=== PATIENT | female | born 1995 | race American Indian/Alaskan Native ===

== ENCOUNTER 2021-11-24 22:48 | Emergency (ER) | payer SELFPAY ==
[2021-11-24 22:54] VITALS: BP 102/64
[2021-11-25 02:23] LABS: Bacteria,Urine 4+ /HPF (Negative); Bilirubin,Urine NEG (Negative); Blood,Urine SM (Negative); Color,Urine Yellow (Yellow); Mucus,Urine FEW /HPF; Protein,Urine <15 mg/dL mg/dL (Negative); Urobilinogen,Urine < 2.0 mg/dL (<2.0)
--- NOTE | 2021-11-25 07:13 | Emergency Department Report ---
ED Head Trauma HPI - General Chief complaint: Head Injury Stated complaint: LOSS CONSCIOUSNESS/SOB Source: patient Mode of arrival: Wheelchair Limitations: No Limitations - History of Present Illness Initial comments: Patient is a 26-year-old -[place] female with no past medical history who presents to the ED with complaint of acute onset headache and localized occipital scalp pain after she suffered a fall at a [employer] about 1 hour prior to arrival in the ED. Patient admits to having been drinking alcohol. Patient denies dizziness, seizures, syncope, loss of consciousness, nausea and vomiting, change in vision, neck pain, dental injuries, nosebleed, abdominal pain, chest pain or shortness of breath or low back pain, numbness and tingling or weakness of upper and lower extremities bilaterally. MD Complaint: head injury (Occipital scalp pain), fall, other (Head injury after fall) -: Sudden, hour(s) (1) Arrival Conditions: Negative: C-spine immobilization present, spinal board immobilization present Mechanism of Injury: mechanical fall Location: occipital Loss of Consciousness: no Previous Trauma to this Area: No Place: home Radiation: none Severity: moderate Severity scale (0 -10): 4 Quality: dull, aching Consistency: constant Provoking factors: none known, other (Alcohol abuse) Other Injuries: none Associated Symptoms: denies other symptoms. denies: confusion, amnesia, repetitive questioning, vision changes, nausea, vomiting, vertigo, syncope, numbness, weakness, tingling, neck pain - Related Data Allergies/Adverse reactions: Allergies Allergy/AdvReac Type Severity Reaction Status Date / Time No Known Allergies Allergy Verified 11/24/21 22:58 ED Review of Systems ROS: Stated complaint: LOSS CONSCIOUSNESS/SOB Other details as noted in HPI Constitutional: denies: chills, fever Eyes: denies: eye pain, eye discharge, vision change ENT: other ( pain). denies: ear pain, throat pain Respiratory: denies: cough, shortness of breath, wheezing Cardiovascular: denies: chest pain, palpitations Endocrine: no symptoms reported Gastrointestinal: denies: abdominal pain, nausea, diarrhea Genitourinary: denies: urgency, dysuria, discharge Musculoskeletal: denies: back pain, joint swelling, arthralgia Skin: denies: rash, lesions Neurological: headache. denies: weakness, paresthesias Psychiatric: denies: anxiety, depression Hematological/Lymphatic: denies: easy bleeding, easy bruising ED Physical Exam - General Limitations: No Limitations General appearance: alert, in no apparent distress - Head Head exam: Present: other (Palpable localized occipital scalp tenderness with mild swelling) - Eye Eye exam: Present: normal appearance, PERRL, EOMI Pupils: Present: normal accommodation - ENT ENT exam: Present: normal exam, normal orophraynx, mucous membranes moist, TM's normal bilaterally, normal external ear exam - Neck Neck exam: Present: normal inspection, full ROM. Absent: tenderness - Respiratory Respiratory exam: Present: normal lung sounds bilaterally. Absent: respiratory distress, wheezes, rhonchi, stridor, chest wall tenderness, accessory muscle use, decreased breath sounds - Cardiovascular Cardiovascular Exam: Present: regular rate, normal rhythm, normal heart sounds. Absent: systolic murmur, diastolic murmur, rubs, gallop - GI/Abdominal GI/Abdominal exam: Present: soft, normal bowel sounds. Absent: tenderness, guarding, rebound, hyperactive bowel sounds, hypoactive bowel sounds, organomegaly - Extremities Exam Extremities exam: Present: normal inspection, full ROM, normal capillary refill - Back Exam Back exam: Present: normal inspection, full ROM. Absent: tenderness, CVA tenderness (R), CVA tenderness (L), muscle spasm, paraspinal tenderness - Neurological Exam Neurological exam: Present: alert, oriented X3, CN II-XII intact, normal gait, reflexes normal - Psychiatric Psychiatric exam: Present: normal affect, normal mood - Skin Skin exam: Present: warm, dry, intact, normal color. Absent: rash ED Course Vital Signs 11/24/21 22:51 Temperature 97.8 F Pulse Rate 103 H Respiratory 19 Rate Blood Pressure 102/64 O2 Sat by Pulse 97 Oximetry - Lab Data Lab Results 11/25/21 Range/Units Unknown Urine Color Yellow (Yellow) Urine Turbidity Slightly-cloudy (Clear) Urine pH 6.0 (5.0-7.0) Ur Specific [place] 1.010 (1.003-1.030) Urine Protein <15 mg/dl (Negative) mg/dL Urine Glucose (UA) Neg (Negative) mg/dL Urine Ketones Neg (Negative) mg/dL Urine Blood Sm (Negative) Urine Nitrite Neg (Negative) Urine Bilirubin Neg (Negative) Urine Urobilinogen < 2.0 (<2.0) mg/dL Ur Leukocyte Esterase Mod (Negative) Urine WBC (Auto) 8.0 H (0.0-6.0) /HPF Urine RBC (Auto) 4.0 (0.0-6.0) /HPF U Epithel Cells (Auto) 6.0 (0-13.0) /HPF Urine Bacteria (Auto) 4+ (Negative) /HPF Urine Mucus Few /HPF - Radiology Data Radiology results: report reviewed, image reviewed The head CT scan without contrast showed no acute intracranial abnormalities or hemorrhage. - Medical Decision Making This is a 26-year-old -[place] female with no past medical history who presents to the ED with complaint of acute onset headache and localized occipital scalp pain after she suffered a fall at a [employer] about 1 hour prior to arrival in the ED. Patient admits to having been drinking alcohol. In the ED, patient is alert and oriented x3 and is not in any distress. Head CT scan without contrast showed no acute intracranial abnormalities or hemorrhage. Patient eloped from the ED prior to being discharged from the ED and walked with not difficulties in the ED. - Differential Diagnosis Head injury; headache, alcohol intoxication - Core Measures AMI Core Measures Followed: No Measure Exclusions: not indicated - NEXUS Criteria Focal neurological deficit present: No Midline spinal tenderness present: No Altered level of consciousness: No Intoxication present: No Distracting injury present: No NEXUS results: C-Spine can be cleared clinically by these results. Imaging is not required. Critical care attestation.: If time is entered above; I have spent that time in minutes in the direct care of this critically ill patient, excluding procedure time. ED Disposition Clinical Impression: Contusion of occipital region of scalp Qualifiers: Encounter type: initial encounter Qualified Code(s): S00.03XA - Contusion of scalp, initial encounter Head injury without fracture of skull Qualifiers: Encounter type: initial encounter Qualified Code(s): S09.90XA - Unspecified injury of head, initial encounter Disposition: 07 LEFT AWOL/ELOPED Is pt being admited?: No Does the pt Need Aspirin: No Condition: Undetermined Instructions: Contusion, [id number] Referrals: MAIKOL CROUCH MD [Primary Care Provider] - 3-5 Days Time of Disposition: 04:25 Print Language: FINNISH
--- NOTE | 2021-11-25 11:32 | Cat Scan Report ---
CT HEAD WITHOUT CONTRAST INDICATION / CLINICAL INFORMATION: INJURY. TECHNIQUE: CT head was performed without administration of intravenous contrast. All CT scans at this location are performed using CT dose reduction for ALARA by means of automated exposure control. COMPARISON: None available. FINDINGS: CEREBRAL PARENCHYMA: No significant abnormality. No acute territorial infarct. HEMORRHAGE: None. EXTRA-AXIAL SPACES: Normal in size and morphology for the patient's age. VENTRICULAR SYSTEM: Normal in size and morphology for the patient's age. MIDLINE SHIFT / HERNIATION: None. CEREBELLUM / BRAINSTEM: No significant abnormality. ORBITS: Normal as visualized. SOFT TISSUES: No significant abnormality. SKULL: No significant abnormality. PARANASAL SINUSES / MASTOID AIR CELLS: Normal as visualized. ADDITIONAL FINDINGS: None. IMPRESSION: 1. No acute intracranial abnormality. Signer Name: Krish Licea II, MD Signed: 11/25/2021 12:20 AM Workstation Name: [id number]
== END 2021-11-25 03:51 | disposition left against medical advice (07) ==
LOC: ED 22:48
DX: S00.03XA Contusion of scalp, initial encounter (principal); W18.39XA Other fall on same level, initial encounter; Y93.89 Activity, other specified; Y92.89 Other specified places as the place of occurrence of the external cause; Y99.8 Other external cause status
CPT/HCPCS: 70450; 81001; 99283